=== PATIENT | male | born 1970 | race African-American/Black ===

== ENCOUNTER 2019-04-14 14:21 | Emergency (ER) | payer MEDICAID ==
[~2019-04-14] VITALS: Ht 162.6 cm; Wt 64.0 kg
[2019-04-14 17:24] LABS: CLARITY URINE CLOUDY (CLEAR); COLOR URINE DARK YELLOW (YELLOW); KETONES URINE NEGATIVE (NEGATIVE); LEUKOCYTE ESTERASE URINE 3+ (NEGATIVE); NITRITE URINE POSITIVE (NEGATIVE); OCCULT BLOOD URINE 3+ (NEGATIVE); PROTEIN URINE 2+ (NEGATIVE); SPECIFIC GRAVITY URINE 1.022 (1.005-1.030)
[2019-04-14 17:29] LABS: CHLORIDE 106 mEq/L (98-107)
[2019-04-14] MEDS ORDERED: CEFTRIAXONE SODIUM 250 MG/VIAL IM ONE (18:30)
[2019-04-14 19:00] VITALS: BP 142/78
== END 2019-04-14 19:08 | disposition home or self-care (01) ==
LOC: ER 14:21
DX: N39.0 Urinary tract infection, site not specified (principal); E78.00 Pure hypercholesterolemia, unspecified
CPT/HCPCS: 36415; 80048; 81003; 87077; 87086; 87186; 96372; 99283; J0696